=== PATIENT | female | born 1975 | race Caucasian/White ===

== ENCOUNTER 2018-07-29 14:27 | Emergency (ER) | payer SELFPAY ==
[~2018-07-29] VITALS: Ht 154.9 cm; Wt 67.2 kg
[2018-07-29 14:42] VITALS: BP 112/75
--- NOTE | 2018-07-29 14:54 | NUR ---
C/O FEVER,NAUSEA, SORE THROAT& HEADACHE X 3 DAYS. TEMP 101 AT THIS TIME. ALSO C/O DYSURIA & LOWER ABDOMINAL PAINRADIATING TO LOWER BACK X TODAY MED HX: DENIES
--- NOTE | 2018-07-29 15:00 | NUR ---
Vania kinney in [facility] - 07/29/18 at 1855 by [email or web address] PATIENT RESTING AT THIS TIME; NO SIGNS OF DISTRESS.
[2018-07-29] MEDS ORDERED: NACL 0.9% 1,000 ML IV ONE ×2 (15:30→17:05)
[2018-07-29 15:57] LABS: APPEARANCE,URINE CLEAR (CLEAR); BILIRUBIN,URINE NEGATIVE (NEGATIVE); BLOOD, URINE TRACE-I (NEGATIVE); COLOR,URINE YELLOW (YELLOW); LEUKOCYTE ESTERASE ,URINE NEGATIVE (NEGATIVE); NITRITE, URINE NEGATIVE (NEGATIVE); UGLUCOSE NEGATIVE (NEGATIVE)
--- NOTE | 2018-07-29 16:00 | NUR ---
PATIENT RESTING AT THIS TIME. NO SIGNS OF DISTRESS.
--- NOTE | 2018-07-29 17:00 | NUR ---
PATIENT RESTING AT THIS TIME. NO SIGNS OF DISTRESS.
[2018-07-29] MEDS ORDERED: KETOROLAC 30 MG/ML VIAL IVP ONE (17:05)
[2018-07-29 18:54] VITALS: BP 118/72
--- NOTE | 2018-07-29 18:54 | NUR ---
Patient discharged with v/s stable. Written and verbal after care instructions given and explained. Patient alert, oriented and verbalized understanding of instructions. Ambulatory with steady gait. All questions addressed prior to discharge. ID band removed. Patient advised to follow up with PMD. Rx of ZOFRAN 4MG ODT AND IBUPROFEN 600MG given. Patient educated on indication of medication including possible reaction and side effects. Opportunity to ask questions provided and answered.
== END 2018-07-29 18:54 | disposition home or self-care (01) ==
LOC: MED 14:27
DX: B34.9 Viral infection, unspecified (principal)
CPT/HCPCS: 71045; 81003; 81025; 96374; 99284; J1885; J7030; Q0092

== ENCOUNTER 2023-12-15 19:38 | Emergency (ER) | payer OTHER ==
[~2023-12-15] VITALS: Ht 162.6 cm; Wt 63.5 kg
[2023-12-15 19:40] VITALS: BP 134/68; PULSE 70; RESP 16; TEMP 97.1; O2SAT 100
[2023-12-15] MEDS ORDERED: ALUMINUM HYD/MAG/SIMETHICONE 30 ML UDC ONE (20:05)
[2023-12-15] MEDS ORDERED: DICYCLOMINE HCL LIQUID 10 MG/5 ML UDC ONE (20:05)
[2023-12-15] MEDS: DICYCLOMINE HCL LIQUID 20 MG, ALUMINUM HYD/MAG/SIMETHICONE 30 ML, LIDOCAINE VISCOUS 2% ... PO ONE (20:09)
[2023-12-15] MEDS: ONDANSETRON 4 MG ODT PO ONE (20:14)
[2023-12-15 20:50] VITALS: O2SAT 99
[2023-12-15] MEDS: BENZOCAINE 20% 57 GM CAN MC ONE (21:11)
[2023-12-15] MEDS ORDERED: BENZ-300 PO (21:22)
[2023-12-15] MEDS ORDERED: IBUP-2213 PO (21:22)
== END 2023-12-15 21:34 | disposition home or self-care (01) ==
LOC: MED 19:38
DX: R09.A2 Foreign body sensation, throat (principal); R03.0 Elevated blood-pressure reading, without diagnosis of hypertension; Z79.899 Other long term (current) drug therapy
CPT/HCPCS: 81025; 99284; Q0162